=== PATIENT | female | born 1985 ===

== ENCOUNTER 2018-08-31 09:39 | Inpatient (IN) | payer OTHER ==
[~2018-08-31] VITALS: Ht 165.1 cm; Wt 79.8 kg
[2018-10-02] MEDS ORDERED: PRENATAL 19 TA1 EAC1 PO (16:09)
[2018-10-02] MEDS ORDERED: SYNTHROID50 MCG PO (16:10)
== END 2018-10-04 13:23 | DRG 807 ==
LOC: OB/GYN 09:39 → LDR 10-02 08:57 → OB/GYN 10-02 18:42
PROVIDERS: ADMIT Obstetrics & Gynecology Maternal & Fetal Medicine
PROC: 10E0XZZ Delivery of Products of Conception, External Approach (ICD-10-PCS; principal; 2018-10-02)
PROC: 4A1HXCZ Monitoring of Products of Conception, Cardiac Rate, External Approach (ICD-10-PCS; 2018-10-02)
PROC: 0UQGXZZ Repair Vagina, External Approach (ICD-10-PCS; 2018-10-02)
DX: O71.4 Obstetric high vaginal laceration alone (principal); Z37.0 Single live birth; Z3A.39 39 weeks gestation of pregnancy

== ENCOUNTER 2018-09-28 07:57 | Outpatient (CLI) | payer OTHER | END 2018-09-28 08:45 | disposition home or self-care (01) | LOC: NST 07:57 | DX: Z34.83 Encounter for supervision of other normal pregnancy, third trimester (principal) ==

== ENCOUNTER 2018-09-30 07:27 | Outpatient (CLI) | payer OTHER | END 2018-09-30 08:45 | disposition home or self-care (01) | LOC: NST 07:27 | DX: Z34.83 Encounter for supervision of other normal pregnancy, third trimester (principal) ==